=== PATIENT | male | born 1965 | race Caucasian/White ===

== ENCOUNTER 2017-02-28 09:01 | Inpatient (IN) | payer BC ==
[2017-02-21 11:05] VITALS: BP 121/79
[~2017-02-28] VITALS: Ht 177.8 cm; Wt 92.0 kg
[~2017-02-28 09:01] MED LIST: B12 PO; BACL-19 PO; CHOL5000 PO; DOCU-180 PO; EPINEPHRINE 1 MG/ML, 1ML ONE; ESCI10TA10 PO; GABA300C10 PO; KETOROLAC 60 MG/2 ML ONE; LIDOCAINE TP; MAGN500C9 PO; MELA1TAB6 PO; OMEP40CA6 PO; ONDA8TAB9 PO; PHYT100T PO; PRAS1TAB3 PO; ROPivacaine/PF 0.2%, 10 ML ONE; SODIUM CHLORIDE 0.9% 100 ML ONE; SUMA100T4 PO; TRANEXAMIC ACID 100 MG/ML, 10ML ONE; VITAMIN B6 PO
[2017-02-28] MEDS ORDERED: LACTATED RINGERS 1,000 ML IV SCH (09:28)
[2017-02-28] MEDS ORDERED: FENTANYL PF 250 MCG/5ML ONE (09:57)
[2017-02-28] MEDS ORDERED: MIDAZOLAM 1 MG/ML, 2ML ONE (09:57)
[2017-02-28] MEDS: D5%-0.45% NACL 1,000 ML IV SCH ×2 (11:10→19:10)
[2017-02-28] MEDS ORDERED: DEXAMETHASONE 4 MG/ML, 1ML ONE (11:25)
[2017-02-28] MEDS ORDERED: ONDANSETRON 2MG/ML, 2ML ONE (11:25)
[2017-02-28] MEDS ORDERED: ZOLPIDEM 5MG TABLET PO PRN (11:30)
[2017-02-28] MEDS ORDERED: ALUMINUM/MAG/SIMETHICONE 30 ML UDC PO PRN (11:30)
[2017-02-28] MEDS ORDERED: HYDROcodone/APAP 10/325 MG TABLET PO PRN (11:30)
[2017-02-28] MEDS ORDERED: ACETAMINOPHEN 650 MG/20.3 ML UDC PO PRN (11:30)
[2017-02-28] MEDS ORDERED: ONDANSETRON 4 MG TABLET PO PRN (11:30)
[2017-02-28] MEDS ORDERED: MAGNESIUM HYDROXIDE 8%, 30ML UDC PO PRN (11:30)
[2017-02-28] MEDS ORDERED: PROMETHAZINE 25 MG/ML, 1ML IM PRN (11:30)
[2017-02-28] MEDS ORDERED: DIAZEPAM 5 MG TABLET PO PRN (11:30)
[2017-02-28] MEDS ORDERED: DIPHENHYDRAMINE 25 MG CAPSULE PO PRN (11:30)
[2017-02-28] MEDS ORDERED: OXYcodone IR 5MG TABLET PO PRN (11:30)
[2017-02-28] MEDS ORDERED: SENNA/DOCUSATE TABLET PO PRN (11:30)
[2017-02-28] MEDS ORDERED: BISACODYL 10 MG SUPP PR PRN (11:30)
[2017-02-28] MEDS ORDERED: VANCOMYCIN 1,000 MG ONE (11:51)
[2017-02-28] MEDS ORDERED: ROPIvacaine/PF 0.2%, 100ML 500 ML in BAG 1 EACH INJ ONE (12:00)
[2017-02-28] MEDS ORDERED: OXYcodone 5 MG/5 ML ORAL.SOL UDC PO PRN (14:00)
[2017-02-28] MEDS ORDERED: FENTANYL PF 100 MCG/2ML IV PRN (14:00)
[2017-02-28] MEDS ORDERED: ACETAMINOPHEN 325 MG TABLET PO PRN (14:00)
[2017-02-28] MEDS ORDERED: HYDROmorphone 1 MG/ML, 1ML IV PRN (14:00)
[2017-02-28] MEDS ORDERED: ONDANSETRON 2MG/ML, 2ML IVPush PRN (14:00)
[2017-02-28] MEDS ORDERED: hydrALAzine 20 MG/ML, 1ML IV PRN (14:00)
[2017-02-28] MEDS ORDERED: METOCLOPRAMIDE 5 MG/ML, 2ML IV PRN (14:00)
[2017-02-28] MEDS ORDERED: LABETALOL 5MG/ML, 20ML IV PRN (14:00)
[2017-02-28] MEDS ORDERED: TRANEXAMIC ACID 1,000 MG in SODIUM CHLORIDE 0.9% 100 ML IVPB ONE (15:30)
[2017-02-28] MEDS ORDERED: INSULIN REGULAR 100 UNITS/ML, 3ML VIAL SQ-INSULIN SCH (16:00)
[2017-02-28] MEDS: TAMSULOSIN 0.4 MG CAP.ER.24H PO SCH (16:27)
[2017-02-28] MEDS: CEFAZOLIN PMX 2GM/50ML 50 ML IVPB SCH (19:37)
[2017-02-28] MEDS: DOCUSATE 100 MG CAPSULE PO SCH (19:37)
[2017-02-28] MEDS: morphine SULFATE 10 MG/ML, 1ML IV PRN (19:37)
[2017-02-28 20:02] VITALS: BP 129/77
[2017-02-28] MEDS ORDERED: HYDROmorphone 1 MG/ML, 1ML ONE (21:45)
[2017-02-28] MEDS: HYDROmorphone 1 MG/ML, 1ML IV PRN ×2 (21:51→22:12)
[2017-02-28] MEDS ORDERED: CITALOPRAM 10 MG TABLET PO SCH (22:00)
[2017-02-28] MEDS ORDERED: CITALOPRAM 20 MG TABLET PO SCH (22:13)
[2017-02-28] MEDS: GABAPENTIN 300 MG CAPSULE PO SCH (23:34)
[2017-02-28] MEDS: OXYcodone/APAP 7.5/325MG TABLET PO PRN (23:34)
[2017-03-01 00:11] VITALS: BP 116/71
[2017-03-01] MEDS: HYDROmorphone 1 MG/ML, 1ML IV PRN ×5 (00:16→11:28)
[2017-03-01 02:33] VITALS: BP 119/75
[2017-03-01] MEDS: D5%-0.45% NACL 1,000 ML IV SCH ×3 (03:10→18:31)
[2017-03-01] MEDS: ONDANSETRON 2MG/ML, 2ML IV PRN (04:35)
[2017-03-01 05:04] LABS: HEMATOCRIT 39.2 % (39.2-51.8); HEMOGLOBIN 13.4 g/dL (13.7-18.0)
[2017-03-01] MEDS: CEFAZOLIN PMX 2GM/50ML 50 ML IVPB SCH (05:05)
[2017-03-01] MEDS ORDERED: DEXAMETHASONE 4 MG/ML, 1ML IVPush SCH (06:00)
[2017-03-01] MEDS ORDERED: TRANEXAMIC ACID 100 MG/ML, 10ML IV SCH (06:00)
[2017-03-01] MEDS ORDERED: TRANEXAMIC ACID 1,000 MG in SODIUM CHLORIDE 0.9% 100 ML IV ONE (06:00)
[2017-03-01] MEDS: OXYcodone/APAP 7.5/325MG TABLET PO PRN ×2 (06:30→22:15)
[2017-03-01] MEDS: DOCUSATE 100 MG CAPSULE PO SCH ×2 (07:51→22:15)
[2017-03-01] MEDS: OMEPRAZOLE 20 MG CAPSULE.DR PO SCH (07:51)
[2017-03-01] MEDS: TAMSULOSIN 0.4 MG CAP.ER.24H PO SCH (07:51)
[2017-03-01] MEDS: MULTIVITAMINS/MINERALS TABLET PO SCH (07:51)
[2017-03-01 08:30] VITALS: BP 122/86
[2017-03-01 13:33] VITALS: BP 109/69
[2017-03-01] MEDS: HYDROmorphone 2MG TABLET PO PRN (16:24)
[2017-03-01 19:57] VITALS: BP 125/78
[2017-03-01] MEDS: GABAPENTIN 300 MG CAPSULE PO SCH (22:14)
[2017-03-01] MEDS: LEXAPRO 10 MG HOMEMEDPO SCH (22:37)
[2017-03-02] MEDS: HYDROmorphone 2MG TABLET PO PRN ×7 (00:01→22:51)
[2017-03-02 02:00] VITALS: BP 134/74
[2017-03-02] MEDS: D5%-0.45% NACL 1,000 ML IV SCH ×3 (03:10→19:10)
[2017-03-02 04:55] LABS: HEMATOCRIT 33.9 % (39.2-51.8); HEMOGLOBIN 11.7 g/dL (13.7-18.0)
[2017-03-02] MEDS: DOCUSATE 100 MG CAPSULE PO SCH ×2 (07:43→20:47)
[2017-03-02] MEDS: MULTIVITAMINS/MINERALS TABLET PO SCH (07:43)
[2017-03-02] MEDS: TAMSULOSIN 0.4 MG CAP.ER.24H PO SCH (07:43)
[2017-03-02] MEDS: OMEPRAZOLE 20 MG CAPSULE.DR PO SCH (07:43)
[2017-03-02 07:49] VITALS: BP 109/70
[2017-03-02] MEDS: HYDROmorphone 1 MG/ML, 1ML IV PRN ×2 (13:17→14:33)
[2017-03-02 15:08] VITALS: BP 111/70
[2017-03-02] MEDS: ONDANSETRON 2MG/ML, 2ML IV PRN (15:15)
[2017-03-02] MEDS: morphine SULFATE 10 MG/ML, 1ML IV PRN (16:13)
[2017-03-02] MEDS ORDERED: ROPIvacaine/PF 0.2%, 100ML 550 ML in BAG 1 EACH INJ ONE (18:30)
[2017-03-02 20:22] VITALS: BP 128/75
[2017-03-02] MEDS ORDERED: BUPIVACAINE/PF 0.25% ONE (20:38)
[2017-03-02] MEDS ORDERED: KETOROLAC 30 MG/1 ML ONE (20:43)
[2017-03-02] MEDS: GABAPENTIN 300 MG CAPSULE PO SCH (20:47)
[2017-03-02] MEDS: LEXAPRO 10 MG HOMEMEDPO SCH (20:47)
[2017-03-03] MEDS: HYDROmorphone 2MG TABLET PO PRN ×3 (03:03→11:30)
[2017-03-03 03:04] VITALS: BP 141/74
[2017-03-03] MEDS: D5%-0.45% NACL 1,000 ML IV SCH ×2 (03:10→11:10)
[2017-03-03 05:34] LABS: HEMATOCRIT 35.9 % (39.2-51.8); HEMOGLOBIN 12.1 g/dL (13.7-18.0)
[2017-03-03 06:39] VITALS: BP 123/63
[2017-03-03] MEDS: TAMSULOSIN 0.4 MG CAP.ER.24H PO SCH (08:57)
[2017-03-03] MEDS: OMEPRAZOLE 20 MG CAPSULE.DR PO SCH (08:57)
[2017-03-03] MEDS: MULTIVITAMINS/MINERALS TABLET PO SCH (08:57)
[2017-03-03] MEDS: DOCUSATE 100 MG CAPSULE PO SCH (08:57)
[2017-03-03 10:58] VITALS: BP 105/68
[2017-03-03] MEDS ORDERED: HYDR2TAB29 PO (11:49)
[2017-03-03] MEDS ORDERED: ALPR0.25 PO (11:50)
== END 2017-03-03 12:00 | disposition home or self-care (01) | DRG 470 ==
LOC: ORIP 09:01 → 4NOR 14:31 → DCLOUNGE 03-03 11:48
PROVIDERS: ADMIT Orthopaedic Surgery; ATTEND Orthopaedic Surgery
PROC: 0QPH04Z Removal of Internal Fixation Device from Left Tibia, Open Approach (ICD-10-PCS; 2017-02-28)
PROC: 0SRD0J9 Replacement of Left Knee Joint with Synthetic Substitute, Cemented, Open Approach (ICD-10-PCS; principal; 2017-02-28 12:45)
DX: M17.12 Unilateral primary osteoarthritis, left knee (principal); G47.30 Sleep apnea, unspecified; K21.9 Gastro-esophageal reflux disease without esophagitis; M71.30 Other bursal cyst, unspecified site
CPT/HCPCS: 36415; 85014; 85018; C1713; J0171; J0690; J1100; J1170; J1885; J2250; J2405; J2795; J3010; J3370; J3490; C1776; J2270; J7120; Q0163